=== PATIENT | female | born 2000 | race African-American/Black ===

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

== ENCOUNTER 2021-02-03 01:29 | Emergency (ER) | payer OTHER ==
[~2021-02-03] VITALS: Ht 154.9 cm; Wt 62.7 kg
[~2021-02-03 01:29] MED LIST: METR500T PO
[2021-02-03 01:39] VITALS: BP 135/85
--- NOTE | 2021-02-03 02:05 | RAD ---
EXAMINATION: XR FOOT_RIGHT 3 VIEWS CLINICAL HISTORY: Pain, concern for stress fracture TECHNIQUE: XR FOOT_RIGHT 3 VIEWS COMPARISON: None FINDINGS/ IMPRESSION: Joint spaces and alignment maintained. No evidence of acute fracture or periosteal reaction to sugges t a stress fracture. Slight soft tissue prominence along the lateral and dorsal forefoot. Nonemergent/outpatient MRI could be obtained for further evaluation of possible stress fracture if in dicated. Electronically signed by: Russ Rogers DO (02/03/2021 2:02 AM) DONNA
--- NOTE | 2021-02-03 02:14 | PHYS DOC ---
Past History Past Medical History: No Pertinent History Past Surgical History: No Surgical History Smoking: Non-smoker Alcohol Use: None Drug Use: None General Adult EDM: Chief Complaint: FOOT INJURY PAIN HPI: HPI: 21-year-old female presents with right midfoot pain. The patient has had intermittent pain in this area off and on over the last couple of years. It has been bothering her more lately. She is a college runner. It only seems to hurt when she is running. It will be sore for a few days after heavier exertion. Patient denies any falls or trauma. She has never had it formally evaluated. It does not prevent her from daily activities. She has no other complaints this time. Review of Systems: Review of Systems: Constitutional: Denies fever or chills Eyes: Denies change in visual acuity HENT: Denies nasal congestion or sore throat Respiratory: Denies cough or shortness of breath Cardiovascular: Denies chest pain or edema GI: Denies abdominal pain, nausea, vomiting, bloody stools or diarrhea : Denies dysuria Musculoskeletal: Right midfoot pain Integument: Denies rash Neurologic: Denies headache, focal weakness or sensory changes Endocrine: Denies polyuria or polydipsia Lymphatic: Denies swollen glands Psychiatric: Denies depression or anxiety Allergies: Allergies: Allergies Coded Allergies Type Severity Reaction Last Updated Verified No Known Drug Allergies 02/19/20 No Physical Exam: PE: Constitutional: Well developed, well nourished, no acute distress, non-toxic appearance. [] HENT: Normocephalic, atraumatic, bilateral external ears normal, oropharynx moist, no oral exudates, nose normal. [] Eyes: PERRLA, EOMI, conjunctiva normal, no discharge. [] Neck: Normal range of motion, no tenderness, supple, no stridor. [] Cardiovascular:Heart rate regular rhythm, no murmur [] Lungs & Thorax: Bilateral breath sounds clear to auscultation [] Abdomen: Bowel sounds normal, soft, no tenderness, no masses, no pulsatile masses. [] Skin: Warm, dry, no erythema, no rash. [] Back: No tenderness, no CVA tenderness. [] Extremities: Mild swelling of the right midfoot, no ecchymosis or obvious deformity [] Neurologic: Alert and oriented X 3, normal motor function, normal sensory function, no focal deficits noted. [] Psychologic: Affect normal, judgement normal, mood normal. [] Current Patient Data: Vital Signs: Vital Signs Date Time Temp Pulse Resp B/P (MAP) Pulse Ox O2 Delivery O2 Flow Rate FiO2 02/03/21 01:39 98.7 78 18 135/85 (102) 98 Room Air EKG: EKG: [] Radiology/Procedures: Radiology/Procedures: [] Impressions: EXAMINATION: XR FOOT_RIGHT 3 VIEWS CLINICAL HISTORY: Pain, concern for stress fracture TECHNIQUE: XR FOOT_RIGHT 3 VIEWS COMPARISON: None FINDINGS/ IMPRESSION: Joint spaces and alignment maintained. No evidence of acute fracture or periost eal reaction to suggest a stress fracture. Slight soft tissue prominence along the lateral and dorsal forefoot. Nonemergent/outpatient MRI could be obtained for further evaluation of possible stress fracture if indicated. Electronically signed by: Russ Baeza DO (02/03/2021 2:02 AM) [facility] DICTATED AND SIGNED BY: RUSS BAEZA DO DATE: 02/03/21 0159 CC: FOREST BOWEN DO; PCP,NO ~MTH0 0 Heart Score: C/O Chest Pain: N/A Risk Factors: Risk Factors: DM, Current or recent (<one month) smoker, HTN, HLP, family history of CAD, obesity. Risk Scores: Score 0 - 3: 2.5% MACE over next 6 weeks - Discharge Home Score 4 - 6: 20.3% MACE over next 6 weeks - Admit for Clinical Observation Score 7 - 10: 72.7% MACE over next 6 weeks - Early Invasive Strategies Course & Med Decision Making: Course & Med Decision Making Pertinent Labs and Imaging studies reviewed. (See chart for details) The patient's x-ray is negative for fracture. I have talked to her about the possibility of stress fracture. If this continues to make her or gets worse she should consider MRI. Otherwise she should continue to work with her trainers and consider some physical therapy. She states verbal understanding. She is stable for discharge at this time. [] Dragon Disclaimer: Rossi Disclaimer: This electronic medical record was generated, in whole or in part, using a voice recognition dictation system. Departure Departure: Impression: Primary Impression: Right foot sprain Qualified Codes: S93.601A - Unspecified sprain of right foot, initial encounter Disposition: HOME / SELF CARE / HOMELESS Condition: STABLE Referrals: PCP,NO (PCP) Patient Instructions: Foot Sprain FOREST BOWEN DO Feb 03, 2021 02:14
== END 2021-02-03 02:30 | disposition home or self-care (01) ==
LOC: ER 01:29
DX: S93.601A Unspecified sprain of right foot, initial encounter (principal); X50.9XXA Other and unspecified overexertion or strenuous movements or postures, initial encounter; Y93.02 Activity, running; Y92.89 Other specified places as the place of occurrence of the external cause; Y99.8 Other external cause status
CPT/HCPCS: 73630; 99283